=== PATIENT | female | born 1950 | race Caucasian/White ===

== ENCOUNTER → 2018-05-29 10:44 | Outpatient (CLI) | payer MEDICARE, BC ==
[2015-02-22 07:57] VITALS: BMI 37.6
[~2018-05-29 10:44] MED LIST: ASPIRIN EC325 M1 PO; BENICAR5 MG PO; CELEXA40 MG PO; FARXIGA10 MG PO; FISH OIL 1,0001 CA1 PO; GLUCOPHAGE1000 MG PO; HUMALOG MIX 75/23 ML; HUMULIN 70100 UNIT/1 SC; KEFLEX500 MG PO; MULTIPLE VITAMI1 TA1 PO; NIASPAN500 MG PO; PERCOCET 10/3251 TA1 PO; PRILOSEC20 MG PO; RESTORIL15 MG PO; ULTRAM50 MG PO; VENTOLIN HFA18 GM INH
== END | disposition home or self-care (01) ==
LOC: D.US 10:44
DX: C79.51 Secondary malignant neoplasm of bone (principal); C50.412 Malignant neoplasm of upper-outer quadrant of left female breast; C50.419 Malignant neoplasm of upper-outer quadrant of unspecified female breast; C79.52 Secondary malignant neoplasm of bone marrow

== ENCOUNTER → 2018-10-20 14:19 | Outpatient (CLI) | payer MEDICARE, BC ==
[2015-02-22 07:57] VITALS: BMI 37.6
== END | disposition home or self-care (01) ==
LOC: D.ECHO 13:30
DX: R06.02 Shortness of breath (principal); I10 Essential (primary) hypertension

== ENCOUNTER → 2021-02-09 10:01 | Outpatient (CLI) | payer MEDICARE, BC ==
[2015-02-22 07:57] VITALS: BMI 37.6
== END | disposition home or self-care (01) ==
LOC: D.HCCECHO 02-06 13:30
PROVIDERS: ATTEND Internal Medicine Cardiovascular Disease
DX: I25.10 Atherosclerotic heart disease of native coronary artery without angina pectoris (principal)